=== PATIENT | male | born 1945 | race Caucasian/White ===

== ENCOUNTER 2021-05-13 15:50 | Emergency (ER) | payer OTHER, MEDICARE | END 2021-05-13 19:11 | disposition home or self-care (01) | LOC: ER1 15:50 | DX: S16.1XXA Strain of muscle, fascia and tendon at neck level, initial encounter (principal); R68.84 Jaw pain; S46.912A Strain of unspecified muscle, fascia and tendon at shoulder and upper arm level, left arm, initial encounter; I25.10 Atherosclerotic heart disease of native coronary artery without angina pectoris; V49.9XXA Car occupant (driver) (passenger) injured in unspecified traffic accident, initial encounter | CPT/HCPCS: 70486; 72125; 73030; 99284 ==

== ENCOUNTER 2021-11-25 19:18 | Emergency (ER) | payer OTHER, MEDICARE | END 2021-11-25 21:05 | disposition home or self-care (01) | LOC: ER1 19:18 | DX: S01.01XA Laceration without foreign body of scalp, initial encounter (principal); S16.1XXA Strain of muscle, fascia and tendon at neck level, initial encounter; I10 Essential (primary) hypertension; I25.10 Atherosclerotic heart disease of native coronary artery without angina pectoris; W01.10XA Fall on same level from slipping, tripping and stumbling with subsequent striking against unspecified object, initial encounter; Y92.009 Unspecified place in unspecified non-institutional (private) residence as the place of occurrence of the external cause | CPT/HCPCS: 12002; 70450; 72125; 99283 ==

== ENCOUNTER 2021-12-06 13:41 | Emergency (ER) | payer OTHER, MEDICARE | END 2021-12-06 14:26 | disposition home or self-care (01) | LOC: ER1 13:41 | DX: S01.01XD Laceration without foreign body of scalp, subsequent encounter (principal); I10 Essential (primary) hypertension; W01.0XXD Fall on same level from slipping, tripping and stumbling without subsequent striking against object, subsequent encounter | CPT/HCPCS: 99281 ==